=== PATIENT | female | born 1960 | race Caucasian/White ===

== ENCOUNTER → 2018-03-03 | Outpatient (CLI) | payer OTHER ==
--- NOTE | 2018-03-03 20:12 | CT ---
Procedure: CT LUNG SCREENING Exam Date: March 03, 2018. Ordering Provider: Zack Quintero Clinical Indication: Z87.891 This patient meets eligibility criteria for low-dose CT lung cancer screening. Comparison: None available. Technique: Using a multislice scanner, sequential helical axial imaging was obtained in the thorax, 2.5 mm thickness, 2.5 mm separation, from the level of the thoracic inlet through the lung bases without IV contrast. A low dose protocol was utilized: CTDI: 1.75 mGy. 120. kVp. 45 mA. 2D sagittal and coronal reconstructed images, 6.0 mm thickness, were obtained. This exam was performed according to our departmental dose optimization program which includes use of automated exposure control, adjustment of the mA and/or kV according to patient size and/or use of iterative reconstruction technique. Nodule measurements under 10 mm are given as mean value of 3 axes diameters. FINDINGS: Lungs and large airways: Multiple bulla in the right apex. Bilateral upper lobes demonstrating scattered centrilobular blebs. Elongated groundglass nodule, subpleural, superior segment left upper lobe, measuring approximately 10 mm x 3 mm on axial sequence 2, image 78. Sub solid 3 mm nodule subpleural lateral right upper lobe on image 38. 2 mm solid nodule anterior lateral left apex on image 17. Several solid nodules in the lateral subpleural right lower lobe all less than 4 mm diameter. No change since the prior study. No abnormal nodules, no mass, no infiltrate. Mild bilateral peribronchial cuffing. Stable since the prior study.. Pleura: Bilateral focal pleural thickening. Largest region of thickening is inferior medial right pleura paravertebral, axial images 115-119. Stable since the prior study. No calcification, no effusion and no pneumothorax. Mediastinum and anu: evaluation limited by low dose technique and lack of IV contrast. Some calcifications but no significantly enlarged lymph nodes or soft tissue masses. Heart and great vessels: Coronary artery calcifications. Aortic arch and descending aortic calcifications and calcifications in the proximal brachiocephalic vessels. Chest wall, lower neck, axillae: Evaluation also limited by same factors as described above. Calcifications in the left axilla and in the right breast. No large soft tissue masses. Upper abdomen: No free air or fluid in the included peritoneal. Included adrenal glands and spleen are normal density and size. Abdominal aortic atherosclerotic calcifications. Gallbladder partially visualized. Osseous structures: Evaluation limited by low dose MIP technique. No blastic or lytic lesions. Mild levoscoliosis of the thoracic spine. IMPRESSION: Multiple subclinical soft tissue nodules in the lungs bilaterally along with pleural thickening mostly at the right base. Groundglass nodule or density in the superior segment left lower lobe. No abnormally enlarged solid nodules masses or infiltrates bilaterally. Stable since the prior study 02/05/2018. [facility] Best [facility] recommendations based upon lung RADS guidelines.. Please see below for Lung RADS category and FOLLOW-UP.* *Lung RADS category CATEGORY 2- Nodules with a very low likelihood (less than 1%) of becoming a clinically active cancer due to size or lack of growth. Nodules: Solid or part solid nodule(s) less than 6mm, new solid nodule less than 4mm. Ground glass nodule(s) less than 20mm or unchanged or slow growing ground glass nodule 20mm or greater. Cat 3 or 4 nodule unchanged for 3 or more months. FOLLOW-UP: Continue annual screening with a Low Dose Chest CT in 12 months for re-evaluation. Electronically signed by: Carter Sandra MD 03/03/2018 8:11 PM [facility]
== END ==
LOC: CT 13:30
PROVIDERS: ATTEND Family Medicine
DX: Z87.891 Personal history of nicotine dependence (principal); I25.10 Atherosclerotic heart disease of native coronary artery without angina pectoris